=== PATIENT | female | born 1990 | race Caucasian/White ===

== ENCOUNTER → 2017-02-28 | Day surgery (SDC) | payer OTHER ==
[~2017-02-28] MED LIST: ACETAMINOPHEN 1000 MG/100 ML VIAL IV ONE; ACETAMINOPHEN/HYDROcodone 325 MG/5 MG TAB ONE; APREPITANT 40 MG CAP ONE; BACITRACIN IM FOR SOLN 50,000 UNIT VIAL ONE; BENZ1CAP34 PO; GENTAMICIN SULFATE 80 MG/2 ML VIAL ONE; KETOROLAC TROMETHAMINE 30 MG/ML (IVP) VIAL IV PUSH ONE; LACTATED RINGER'S 1,000 ML BAG IV ONE; LACTATED RINGER'S 1000 ML INJ 1,000 ML ONE; LIDOCAINE 1%/EPINEPHrine 1:100,000 SOLN 20 ML VIAL ONE; MEPERIDINE HCL 25 MG/ML VIAL ONE; MIDAZOLAM HCL 2 MG/2 ML VIAL ONE; NS 100 ML (PAB BAG) 100 ML IV ONE; ONDANSETRON HCL 4 MG/2 ML VIAL IV PUSH ONE; PHENERGAN CODEINE PO; PROPOFOL 200 MG/20 ML AMP IV ONE; SODIUM CHLORIDE 0.9% 20 ML VIAL ONE; VANCOMYCIN 500 MG VIAL ONE; YAZ3TAB; ZITH250T PO; ceFAZolin INJ 1,000 MG VIAL ONE
--- NOTE | 2017-02-28 11:01 | TN ---
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 The right breast, history of augmentation mammoplasty and residual ptosis. PROCEDURES Bilateral removal and replacement of implants. Left breast full capsulectomy/capsulorrhaphy, bilateral circumvertical mastopexies, bilateral lateral and inferior capsulorrhaphies. PLANES OF PLACEMENT Subpectoral IMPLANT DATA PLACEMENT Implant data on the right breast is [facility] [employer] Inspira 295 cc, serial number [id number]. Implant data on the left breast [facility] [employer] Inspira volume 325, serial number [id number]. PROCEDURE PERFORMED She was properly consented, marked and properly anesthetized. The markings have been done approximately at 27 mm from the sternal notch, 38 mm areolar diameter. After injecting a local anesthetic a total of 30 cc into the incisions lines of 1% lidocaine with epinephrine mixed with 0.25% Marcaine in a 2:1 ratio. Utilized the previous mastopexy scars in the infra-areolar vertical area, I proceeded and incised with a 15 blade, carried out with electrocautery until I found the capsule. Finding no evidence of pathology in the capsule whatsoever, the implant was removed without any difficulties. She did have a saline device in the retroperitoneal plane. After irrigating the pocket with antibiotic solution, I proceeded to perform the lateral and inferior capsulorrhaphies utilizing multiple layers of 0 silk in a [id number] fashion. Isolation of the nipple-areolar complex was performed from the beginning and now the incision. With this, I proceeded to isolate the skin and the implant was introduced. Contralateral, the wounds were closed with multiple 2-0 Monocryl sutures in layers in the breast parenchyma and dermis. At this point, our attention was directed to the left breast. Also through the infra-areolar vertical incision, the implant was found. This was a textured implant at the subglandular level. She did have a significant capsular contraction. At this point after removal of the implants, a full capsulectomy was performed in the usual fashion. The capsule was properly photographed and sent to pathology for further analysis. At this point, elevation of the pectoris major muscle was carried out and anchored into the subglandular level with 2-0 Monocryl suture layers. It was noted that the muscle was indeed very hypoplastic in nature as well. With this and with the challenging anatomy in regards to the lack of breast tissue and the thin skin, I made an incision and reinforced the retropectoral plane utilizing a 6 x 16 ADN suture. It was anchored at the edge of the pectorals major muscle as well as with four anchoring points. It was also scored to properly wrap the implant without any difficulty. The implant was introduced utilizing no-touch technique. We also performed lateral capsulorrhaphies utilizing the silk material. A 7 mm REY drain was brought in and secured in place before closing the wounds which was done with multiple 2-0 Monocryl sutures in layers. At this point, once both wounds were closed on both breasts, I proceeded and sat the patient up. Remarked a 38 mm areolar diameter and a tailor tack technique was carried out utilizing surgical frankie. This skin was properly marked, the frankie were removed, the skin was de-epithelialized, again preserving the 38 mm areolar diameter and the wounds were closed in the following fashion. The inferior horizontal inverted T was closed utilizing two layers of 2-0 Monocryl suture in the dermis and subcu while the NAC was brought out utilizing a combination of 2-0 PTFE in a pinwheel technique and reinforced with 2-0 quill. The wounds were dressed utilizing Prineo Dermabond. Overall, the patient tolerated the procedure well. Absorbent dressings were applied. Good viability of tissue was noted at the end of the case. She was awakened and extubated in the operating room, transfer back to the postanesthesia care unit in stable condition. There were no complications appreciated. The patient tolerated the procedure fairly well. MD CHASITY Sun/MARITA /10:31 AM /10:43 AM
== END | disposition home or self-care (01) ==
LOC: ESDC 06:09
PROVIDERS: ATTEND Plastic Surgery
DX: Z41.1 Encounter for cosmetic surgery (principal)
CPT/HCPCS: 00400; 00402; 15777; 19316; 19325; 19328; 88305; C1789; J0131; J1580; J1885; J2175; J2250; J2405; J3010; J3370; J7120; J8501; Q4116; J0690